=== PATIENT | male | born 1970 | race Caucasian/White ===

== ENCOUNTER 2022-11-12 15:46 | Outpatient (CLI) | payer OTHER ==
--- NOTE | 2022-11-13 03:25 | XRAY Report ---
PROCEDURE: Cervical Spine Complete INDICATIONS: CERVICALGIA TECHNIQUE: 8 views of the cervical spine acquired. COMPARISON: None. FINDINGS: Bones: No fractures or dislocations to the C7 level. There is slight reversal of cervical lordosis c entered at T6. There is partial fusion of the C2 and C3 vertebral bodies. Mild degenerative disc dise ase is demonstrated in the lower cervical spine. Oblique images demonstrate bony neuroforaminal narro wing on the right at C4-C5. No definite left bony neuroforaminal narrowing. Soft tissues: No prevertebral soft tissue swelling. IMPRESSION: 1. Slight reversal of the cervical lordosis. 2. No definite fracture or subluxation to the C7 level. 3. Bony neuroforaminal narrowing on the right at C4-C5. Reviewed by: Hong Bonilla MD on 11/13/2022 3:24 AM PDT Approved by: Hong Bonilla MD on 11/13/2022 3:24 AM PDT Station ID: [id number]
== END 2022-11-12 15:47 | disposition home or self-care (01) ==
LOC: DI 15:46
PROVIDERS: ATTEND Student in an Organized Health Care Education/Training Program
DX: M50.30 Other cervical disc degeneration, unspecified cervical region (principal); M48.02 Spinal stenosis, cervical region

== ENCOUNTER 2024-01-20 12:00 | Outpatient (CLI) | payer OTHER ==
--- NOTE | 2024-01-20 17:25 | XRAY Report ---
PROCEDURE: Chest 2V INDICATIONS: COUGH TECHNIQUE: 2 views of the chest were acquired. COMPARISON: None. FINDINGS: Surgical changes and devices: None. Lungs and pleura: No pleural effusions or pneumothorax. Lungs are clear. Mediastinum: Mediastinal contours appear normal. Heart size is normal. Bones and chest wall: No suspicious bony lesions. Overlying soft tissues appear unremarkable. IMPRESSION: No acute cardiopulmonary process. Reviewed by: Gaby Escobar MD on 01/20/2024 5:24 PM PDT Approved by: Gaby Escobar MD on 01/20/2024 5:24 PM PDT Station ID: [id number]
== END 2024-01-20 13:22 | disposition home or self-care (01) ==
LOC: DI.N 12:00
PROVIDERS: ATTEND Physician Assistant
DX: R05.9 Cough, unspecified (principal)

== ENCOUNTER 2024-02-10 09:09 | Outpatient (CLI) | payer OTHER ==
[2024-02-10 12:38] LABS: BASOPHILS # (AUTO) 0.1 10^3/uL (0.0-0.1); BASOPHILS % (AUTO) 1.2 %; EOSINOPHILS # (AUTO) 0.2 10^3/uL (0.0-0.7); EOSINOPHILS % (AUTO) 4.3 %; HGB - HEMOGLOBIN 15.9 g/dL (14.0-18.0); LYMPHOCYTES # (AUTO) 2.7 10^3/uL (1.5-3.5); LYMPHOCYTES % (AUTO) 52.8 %; MEAN CORPUSCULAR HEMOGLOBIN 29.9 pg (27.0-31.0); MEAN CORPUSCULAR HGB CONC 33.1 g/dL (32.0-36.0); MEAN CORPUSCULAR VOLUME 90.4 fL (80.0-94.0); MEAN PLATELET VOLUME 11.2 fL (7.4-11.4); MONOCYTES # (AUTO) 0.7 10^3/uL (0.0-1.0); MONOCYTES % (AUTO) 14.3 %; NEUTROPHILS # (AUTO) 1.4 10^3/uL (1.5-6.6); NEUTROPHILS % (AUTO) 27.2 %; PLT - PLATELET COUNT 233 10^3/uL (130-450); RED BLOOD COUNT 5.31 10^6/uL (4.70-6.10); RED CELL DISTRIBUTION WIDTH 12.7 % (12.0-15.0); WHITE BLOOD COUNT 5.1 x10^3/uL (4.8-10.8)
[2024-02-10 12:49] LABS: ESTIMATED AVERAGE GLUCOSE 123 mg/dL (70-100); HEMOGLOBIN A1c% 5.9 % (4.27-6.07)
[2024-02-10 12:58] LABS: ALBUMIN 4.4 g/dL (3.2-5.5); ALBUMIN/GLOBULIN RATIO 1.6 (1.0-2.2); ALKALINE PHOSPHATASE 47 IU/L (42-121); ALT ALANINE AMINOTRANSFERASE 49 IU/L (10-60); AST ASPARTATE AMINOTRANSFERASE 30 IU/L (10-42); BILIRUBIN,TOTAL 0.3 mg/dL (0.2-1.0); BUN - BLOOD UREA NITROGEN 19 mg/dL (6-20); CALCIUM 9.3 mg/dL (8.5-10.3); CARBON DIOXIDE - CO2 28 mmol/L (21-32); CHLORIDE 105 mmol/L (101-111); CHOL/HDL RATIO 5.2 (<5.0); CHOLESTEROL 181 mg/dL; CREATININE 0.8 mg/dL (0.6-1.3); GFR - MDRD 102 (>89); GLUCOSE 115 mg/dL (74-104); HDL CHOLESTEROL 35 mg/dL; LDL CHOLESTEROL,CALCULATED 104 mg/dL; SODIUM 138 mmol/L (135-145); TOTAL PROTEIN 7.1 g/dL (6.4-8.9); TRIGLYCERIDES 211 mg/dL (48-352); VLDL CHOLESTEROL 42 mg/dL
[2024-02-10 13:04] LABS: THYROID STIMULATING HORMONE 3.75 uIU/mL (0.34-5.60)
== END 2024-02-10 09:10 | disposition home or self-care (01) ==
LOC: LAB.N 09:09
DX: Z00.00 Encounter for general adult medical examination without abnormal findings (principal); Z12.5 Encounter for screening for malignant neoplasm of prostate; R53.83 Other fatigue
CPT/HCPCS: 36415; 80053; 80061; 83036; 83721; 84153; 84403; 84443; 85025

== ENCOUNTER 2024-02-16 09:01 | Outpatient (CLI) | payer OTHER | END 2024-02-16 09:02 | disposition home or self-care (01) | LOC: LAB.N 09:01 | DX: Z00.00 Encounter for general adult medical examination without abnormal findings (principal) | CPT/HCPCS: 36415; 84402; 84403 ==

== ENCOUNTER 2024-03-16 08:03 | Outpatient (CLI) | payer OTHER ==
[2024-03-16 13:09] LABS: PROLACTIN 7.72 ng/mL
== END 2024-03-16 08:04 | disposition home or self-care (01) ==
LOC: LAB.N 08:03
DX: R53.83 Other fatigue (principal)
CPT/HCPCS: 36415; 83002; 84146; 84403

== ENCOUNTER 2024-05-03 07:14 | Outpatient (CLI) | payer OTHER | END 2024-05-03 07:15 | disposition home or self-care (01) | LOC: LAB.N 07:14 | PROVIDERS: ATTEND Urology | DX: E23.0 Hypopituitarism (principal) | CPT/HCPCS: 36415; 82670 ==